=== PATIENT | male | born 1945 | race Caucasian/White ===

== ENCOUNTER 2017-10-21 13:15 | Emergency (ER) | payer OTHER, MEDICARE ==
[~2017-10-21] VITALS: Ht 160 cm; Wt 60.2 kg
[~2017-10-21 13:15] MED LIST: ANUCORT-HC25 MG PR; GLIPIZIDE XL5 MG PO; METFORMIN HCL500 M1 PO; PRAVASTATIN SOD40 MG PO; PROTONIX40 MG PO
[2017-10-21 13:55] LABS: HEMATOCRIT 43.7 % (38.0-50.0); MCH 32.7 PG (29.0-34.0); MCHC 33.2 G/DL (30.0-36.0); MCV 98.6 FL (86-99); MEAN PLAT.VOLUME 9.5 uM^3 (9.0-12.4); PLATELET COUNT 327 K/uL (156-360); RBC DIS.WIDTH-CV 13.4 % (11.8-14.6); RBC DIS.WIDTH-SD 49.1 % (39-53); RED BLOOD COUNT 4.43 M/uL (4.00-5.50); WHITE BLOOD COUNT 8.3 K/uL (4.1-10.2)
[2017-10-21 14:03] LABS: CHLORIDE 103 mEq/L (99-109); POTASSIUM 4.3 mEq/L (3.7-5.4); SODIUM 142 mEq/L (136-147)
[2017-10-21 14:05] LABS: GLUCOSE 88 mg/dL (70-99)
[2017-10-21 14:06] LABS: ANION GAP 12 MEQ/L (2-14)
[2017-10-21 14:09] LABS: GFR ESTIMATE (CALCULATED) > 59 mL/min/
[2017-10-21 14:10] LABS: UREA NITROGEN (BUN) 13 mg/dL (9-23)
[2017-10-21 14:47] LABS: ADD MIUA? YES; BILIRUBIN NEGATIVE; BLOOD NEGATIVE; COLOR YELLOW ((YELLOW)); GLUCOSE (STRIP) NEGATIVE; KETONES 5; LEUKOCYTES TRACE; NITRITE NEGATIVE; PROTEIN (STRIP) 100; SPECIFIC GRAVITY 1.027 (1.000-1.030)
[2017-10-21 14:54] LABS: BACTERIA NONE SEEN /HPF; EPITHELIAL CELLS NONE SEEN /HPF; MUCUS 2+ /LPF; RED BLOOD CELLS TNTC /HPF (0-5); UCUL ADDED? YES
[2017-10-21] MEDS ORDERED: AUGMENTIN875 MG PO (16:04)
[2017-10-21] MEDS ORDERED: OTIPRIO1 ML RIGHT EAR (16:04)
[2017-10-21 16:30] VITALS: BP 134/79
== END 2017-10-21 16:45 | disposition home or self-care (01) ==
LOC: EME 13:15
PROVIDERS: Emergency Medicine
DX: H60.91 Unspecified otitis externa, right ear (principal); H66.91 Otitis media, unspecified, right ear; J32.0 Chronic maxillary sinusitis; E11.9 Type 2 diabetes mellitus without complications; Z79.84 Long term (current) use of oral hypoglycemic drugs; R29.6 Repeated falls; Z85.038 Personal history of other malignant neoplasm of large intestine
CPT/HCPCS: 70450; 80048; 81003; 83605; 85027; 87040; 87070; 87077; 87086; 87147; 87186; 93005; 99281; 99285; J7030

== ENCOUNTER 2017-11-03 12:46 | Emergency (ER) | payer OTHER, MEDICARE ==
[~2017-11-03] VITALS: Ht 160 cm; Wt 58.1 kg
[~2017-11-03 12:46] MED LIST changes: +AUGMENTIN875 MG PO; +OTIPRIO1 ML RIGHT EAR
[2017-11-03 13:47] LABS: EOSINOPHIL (%) 1.9 % (0-5); EOSINOPHIL COUNT 0.2 K/uL (0-0.3); IMMATURE GRANULOCYTE (%) 0.4 % (0.0-0.7); INSTRUMENT ABS NEUTROPHIL CT 5.7 K/uL; LYMPHOCYTE COUNT 1.4 K/uL (1.0-2.8); MCH 32.7 PG (29.0-34.0); MCHC 33.1 G/DL (30.0-36.0); MCV 98.8 FL (86-99); MEAN PLAT.VOLUME 9.1 uM^3 (9.0-12.4); MONOCYTE (%) 7.5 % (3-12); MONOCYTE COUNT 0.6 K/uL (0-0.8); NEUTROPHIL (%) 71.6 % (45-76); NEUTROPHIL COUNT 5.7 K/uL (1.8-6.4); PLATELET COUNT 273 K/uL (156-360); RBC DIS.WIDTH-CV 13.7 % (11.8-14.6); RED BLOOD COUNT 4.25 M/uL (4.00-5.50); WHITE BLOOD COUNT 7.9 K/uL (4.1-10.2)
[2017-11-03 13:55] LABS: CHLORIDE 104 mEq/L (99-109); POTASSIUM 4.5 mEq/L (3.7-5.4); SODIUM 140 mEq/L (136-147)
[2017-11-03 13:56] LABS: GLUCOSE 164 mg/dL (70-99)
[2017-11-03 13:58] LABS: ANION GAP 10 MEQ/L (2-14)
[2017-11-03 14:00] LABS: GFR ESTIMATE (CALCULATED) > 59 mL/min/ (58.99-99999)
[2017-11-03 14:01] LABS: UREA NITROGEN (BUN) 19 mg/dL (9-23)
[2017-11-03 14:38] VITALS: BP 130/99
== END 2017-11-03 14:39 | disposition home or self-care (01) ==
LOC: EME 12:46
PROVIDERS: Emergency Medicine
DX: H66.91 Otitis media, unspecified, right ear (principal)
CPT/HCPCS: 80048; 85025; 99281; 99283

== ENCOUNTER 2017-12-09 12:31 | Observation (INO) | payer OTHER, MEDICARE ==
[~2017-12-09] VITALS: Ht 160 cm; Wt 51.1 kg
[2017-12-09 15:00] LABS: BASOPHIL (%) 0.1 % (0-1); EOSINOPHIL (%) 1.4 % (0-5); EOSINOPHIL COUNT 0.1 K/uL (0-0.3); HEMATOCRIT 44.3 % (38.0-50.0); IMMATURE GRANULOCYTE (%) 0.4 % (0.0-0.7); LYMPHOCYTE (%) 13.5 % (15-42); LYMPHOCYTE COUNT 1.1 K/uL (1.0-2.8); MCH 33.3 PG (29.0-34.0); MCHC 33.9 G/DL (30.0-36.0); MCV 98.2 FL (86-99); MONOCYTE (%) 5.6 % (3-12); MONOCYTE COUNT 0.4 K/uL (0-0.8); NEUTROPHIL COUNT 6.2 K/uL (1.8-6.4); PLATELET COUNT 302 K/uL (156-360); RBC DIS.WIDTH-CV 14.6 % (11.8-14.6); RBC DIS.WIDTH-SD 52.4 % (39-53); RED BLOOD COUNT 4.51 M/uL (4.00-5.50); WHITE BLOOD COUNT 7.9 K/uL (4.1-10.2)
[2017-12-09 15:15] LABS: ALBUMIN 3.9 g/dL (3.2-4.8); CHLORIDE 107 mEq/L (99-109); POTASSIUM 4.5 mEq/L (3.7-5.4); SODIUM 138 mEq/L (136-147)
[2017-12-09 15:17] LABS: GLUCOSE 105 mg/dL (70-99); TOTAL PROTEIN 7.1 g/dL (6.4-8.3)
[2017-12-09 15:19] LABS: TOTAL BILIRUBIN 0.4 mg/dL (0.0-1.0)
[2017-12-09 15:21] LABS: ALKALINE PHOSPHATASE 81 IU/L (3-129); CREATININE 0.8 mg/dL (0.6-1.3); GFR ESTIMATE (CALCULATED) > 59 mL/min/ (58.99-99999)
[2017-12-09 15:22] LABS: UREA NITROGEN (BUN) 14 mg/dL (9-23)
[2017-12-09 15:23] LABS: AST (GOT) 26 IU/L (2-34)
[2017-12-09 15:24] LABS: ALT (GPT) 17 IU/L (3-49)
[2017-12-09 16:12] LABS: THYROTROPIN (TSH) 0.16 MIU/L (0.4-5.5)
[2017-12-09 17:40] LABS: TROP-I INTERPRETATION NEGATIVE; TROPONIN-I < 0.01 ng/mL (0.0-0.30)
[2017-12-09 19:26] LABS: APPEARANCE SL.HAZY ((CLEAR)); BILIRUBIN NEGATIVE; BLOOD NEGATIVE; COLOR YELLOW ((YELLOW)); GLUCOSE (STRIP) NEGATIVE; KETONES 5; LEUKOCYTES NEGATIVE; NITRITE NEGATIVE; PROTEIN (STRIP) NEGATIVE; SPECIFIC GRAVITY 1.038 (1.000-1.030); UROBILINOGEN 0.2 MG/DL (0.2-1.0)
[2017-12-09 19:49] LABS: BACTERIA 1+ /HPF; EPITHELIAL CELLS NONE SEEN /HPF; MUCUS 4+ /LPF; RED BLOOD CELLS 0-5 /HPF (0-5); WHITE BLOOD CELLS 0-5 /HPF (0-5)
[2017-12-09 19:58] LABS: TROP-I INTERPRETATION NEGATIVE; TROPONIN-I 0.02 ng/mL (0.0-0.30)
[2017-12-09] MEDS ORDERED: TYLENOL EXTRA500 MG PO (21:22)
[2017-12-09] MEDS ORDERED: GLUCOTROL XL2.5 MG PO (21:22)
[2017-12-09] MEDS ORDERED: NEOMYCIN-POLYMY10 M1 BOTH EARS (21:23)
[2017-12-10 12:34] VITALS: BP 104/60
[2017-12-10 16:04] VITALS: BP 109/78
[2017-12-10 19:50] VITALS: BP 115/56
[2017-12-11 01:32] VITALS: BP 115/54
[2017-12-11 06:10] LABS: BASOPHIL (%) 0.2 % (0-1); EOSINOPHIL (%) 1.9 % (0-5); EOSINOPHIL COUNT 0.2 K/uL (0-0.3); HEMATOCRIT 35.8 % (38.0-50.0); IMMATURE GRANULOCYTE (%) 0.4 % (0.0-0.7); LYMPHOCYTE (%) 12.7 % (15-42); LYMPHOCYTE COUNT 1.1 K/uL (1.0-2.8); MCH 32.1 PG (29.0-34.0); MCHC 33.2 G/DL (30.0-36.0); MCV 96.5 FL (86-99); MONOCYTE (%) 8.4 % (3-12); MONOCYTE COUNT 0.8 K/uL (0-0.8); NEUTROPHIL (%) 76.4 % (45-76); NEUTROPHIL COUNT 6.8 K/uL (1.8-6.4); PLATELET COUNT 283 K/uL (156-360); RBC DIS.WIDTH-CV 14.4 % (11.8-14.6); RBC DIS.WIDTH-SD 50.5 % (39-53); RED BLOOD COUNT 3.71 M/uL (4.00-5.50); WHITE BLOOD COUNT 8.9 K/uL (4.1-10.2)
[2017-12-11 06:12] LABS: HEMOGLOBIN 11.9 G/DL (12.5-16.6)
[2017-12-11 06:42] LABS: CHLORIDE 105 MEQ/L (99-109); CREATININE 0.7 MG/DL (0.6-1.3); GFR ESTIMATE (CALCULATED) > 59 mL/min/ (58.99-99999); GLUCOSE 101 mg/dL (70-99); POTASSIUM 3.9 MEQ/L (3.7-5.4); SODIUM 139 MEQ/L (136-147); UREA NITROGEN (BUN) 12 mg/dL (9-23)
[2017-12-11 07:38] VITALS: BP 118/70
[2017-12-11] MEDS ORDERED: PANTOPRAZOLE SO40 MG PO (10:26)
[2017-12-11 11:08] VITALS: BP 110/59
== END 2017-12-11 11:42 | disposition home or self-care (01) ==
LOC: EME 12:31 → 5WEST 23:21 → EDOF 23:21 → ENRESERV 23:24 → 5WEST 12-10 12:27
PROVIDERS: Emergency Medicine; Hospitalist; Physician Assistant Medical
DX: E86.0 Dehydration (principal); R63.4 Abnormal weight loss; Z85.048 Personal history of other malignant neoplasm of rectum, rectosigmoid junction, and anus; R10.13 Epigastric pain; Z92.21 Personal history of antineoplastic chemotherapy; Z92.3 Personal history of irradiation; E11.40 Type 2 diabetes mellitus with diabetic neuropathy, unspecified; I10 Essential (primary) hypertension; K21.9 Gastro-esophageal reflux disease without esophagitis; Z93.3 Colostomy status; Z98.890 Other specified postprocedural states; E78.5 Hyperlipidemia, unspecified; J32.9 Chronic sinusitis, unspecified; Z83.3 Family history of diabetes mellitus; Z80.9 Family history of malignant neoplasm, unspecified; Z88.5 Allergy status to narcotic agent; Z88.8 Allergy status to other drugs, medicaments and biological substances; Z79.84 Long term (current) use of oral hypoglycemic drugs; R42 Dizziness and giddiness; Z66 Do not resuscitate
CPT/HCPCS: 70551; 71045; 74177; 80048; 80053; 81003; 82948; 84439; 84443; 84481; 84484; 85025; 93005; 99281; 99285; A6214; G0378; G8979 CJ; G8979 GP CK; G8980 GP CK; G8987 GO CL; G8988 GO CK; G8989 GO CK; G8989 GO CL; J1644; J7030; S0028

== ENCOUNTER → 2018-05-05 | Outpatient (CLI) | payer MEDICARE ==
[~2018-05-05] MED LIST changes: +GLUCOTROL XL2.5 MG PO; +NEOMYCIN-POLYMY10 M1 BOTH EARS; +PANTOPRAZOLE SO40 MG PO; +TYLENOL EXTRA500 MG PO
== END | disposition home or self-care (01) ==
LOC: CDC 09:16
DX: Z01.810 Encounter for preprocedural cardiovascular examination (principal); I70.25 Atherosclerosis of native arteries of other extremities with ulceration; R94.31 Abnormal electrocardiogram [ECG] [EKG]
CPT/HCPCS: 93000